=== PATIENT | male | born 2000 | race African-American/Black ===

== ENCOUNTER 2018-01-30 16:50 | Inpatient (IN) ==
[2018-01-30] MEDS ORDERED: Diphtheria/Tetanus/Pertussis Vaccine Inj 0.5 ML Syringe IM ONE (16:56)
[2018-01-30] MEDS ORDERED: fentaNYL Citrate Inj 100 MCG/2 ML Ampul ONE (16:56)
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
[2018-01-30 17:14] LABS: Baso % (Auto) 0.6 % (0.0-2.0); Eos # (Auto) 0.1 th/mm3 (0.0-0.4); Eos % (Auto) 1.7 % (0.0-4.0); Hematocrit 41.1 % (39.0-51.0); Hemoglobin 14.5 gm/dL (13.0-17.0); Lymph # (Auto) 3.1 th/mm3 (1.0-4.8); Lymph % (Auto) 43.2 % (9.0-44.0); Mean Corpuscular HGB Conc 35.3 % (32.0-36.0); Mean Corpuscular Hemoglobin 28.9 pg (27.0-34.0); Mean Corpuscular Volume 81.8 fL (80.0-100.0); Mean Platelet Volume 8.1 fL (7.0-11.0); Mono # (Auto) 0.5 th/mm3 (0.0-0.9); Mono % (Auto) 7.2 % (0.0-8.0); Neut # (Auto) 3.4 th/mm3 (1.8-7.7); Neut % (Auto) 47.3 % (16.0-70.0); Platelet Count 197 th/mm3 (150-450); Red Blood Count 5.02 mil/mm3 (4.50-5.90); Red Cell Distribution Width 14.4 % (11.6-17.2); White Blood Count 7.1 th/mm3 (4.0-11.0)
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
[2018-01-30 17:24] LABS: Activated Partial Thrombo Time 21.7 sec (24.3-30.1); INR 1.1 Ratio; Prothrombin Time 10.8 sec (9.8-11.6)
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
[2018-01-30] MEDS ORDERED: HYDROmorphone PF Inj 2 MG/ML Vial IV.PUSH ONE (17:36)
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
[2018-01-30] MEDS ORDERED: HYDROmorphone PF Inj 1 MG/ML Ampul IV.PUSH PRN (17:53)
[2018-01-30] MEDS ORDERED: Naloxone Inj 0.4 MG/ML Vial IV.PUSH PRN (17:53)
[2018-01-30] MEDS ORDERED: Bisacodyl 10 MG Supp RECTAL PRN (17:53)
[2018-01-30] MEDS ORDERED: Post-op Orders (for Pharmacy) OTHER ONE (17:53)
[2018-01-30] MEDS: Famotidine 20 MG Tablet PO SCH (20:44)
[2018-01-30] MEDS: Senna/Docusate Sodium 8.6/50 MG Tablet PO SCH (20:44)
[2018-01-30] MEDS: Sod Chloride 0.9% Inj 1,000 ML IV.CONT SCH (20:45)
[2018-01-30] MEDS ORDERED: Chlorhexidine Gluconate 2% 1 Pack (2 Cloths) TOPICAL ONE (23:13)
[2018-01-30] MEDS ORDERED: Metoprolol Tartrate 25 MG Tablet PO ONE (23:13)
[2018-01-30] MEDS ORDERED: Sodium Chlor 0.9% Inj 500 ML IV.SIG SCH (23:45)
[2018-01-31] MEDS: HYDROmorphone PF Inj 1 MG/ML Ampul IV.PUSH PRN ×3 (02:00→23:59)
[2018-01-31 04:18] LABS: Baso % (Auto) 0.3 % (0.0-2.0); Hematocrit 43.7 % (39.0-51.0); Hemoglobin 14.6 gm/dL (13.0-17.0); Lymph # (Auto) 1.2 th/mm3 (1.0-4.8); Lymph % (Auto) 14.3 % (9.0-44.0); Mean Corpuscular HGB Conc 33.4 % (32.0-36.0); Mean Corpuscular Hemoglobin 27.8 pg (27.0-34.0); Mean Corpuscular Volume 83.3 fL (80.0-100.0); Mean Platelet Volume 8.3 fL (7.0-11.0); Mono # (Auto) 0.4 th/mm3 (0.0-0.9); Mono % (Auto) 5.2 % (0.0-8.0); Neut # (Auto) 6.7 th/mm3 (1.8-7.7); Neut % (Auto) 80.2 % (16.0-70.0); Platelet Count 194 th/mm3 (150-450); Red Blood Count 5.24 mil/mm3 (4.50-5.90); Red Cell Distribution Width 14.7 % (11.6-17.2); White Blood Count 8.4 th/mm3 (4.0-11.0)
[2018-01-31 04:38] LABS: Calcium 8.4 mg/dL (8.5-10.1); Carbon Dioxide 26.6 meq/L (21.0-32.0)
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
[2018-01-31] MEDS: Sod Chloride 0.9% Inj 1,000 ML IV.CONT SCH (06:46)
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
[2018-01-31] MEDS: Famotidine 20 MG Tablet PO SCH ×2 (12:15→21:21)
[2018-01-31] MEDS: Senna/Docusate Sodium 8.6/50 MG Tablet PO SCH ×2 (12:15→21:21)
[2018-01-31] MEDS ORDERED: Sodium Chlor 0.9% Inj 250 ML IV.CONT ONE (12:32)
[2018-01-31] MEDS ORDERED: Lidocaine PF 1% Inj 5 ML Syringe OTHER ONE (12:32)
[2018-01-31] MEDS ORDERED: Neostigmine Inj 5 MG/5 ML Syringe IV.PUSH ONE (12:32)
[2018-01-31] MEDS ORDERED: Glycopyrrolate Inj 1 MG/5 ML Syringe IV.PUSH ONE (12:32)
--- NOTE | 2018-01-31 15:13 | P.BOP ---
Date of procedure: 01/31/18 Procedure: IMN L femur fracture Implants: Synthes Recon IMN Anesthesia: GETA Surgeon: Felisa Krause MD Estimated blood loss (mL): 200 Pathology: none sent Condition: stable Disposition: PACU
--- NOTE | 2018-01-31 15:14 | P.PNOP ---
Subjective Interval history: POD#0 s/p IMN L femur Physical Exam Vital signs: Vital Signs 01/30/18 17:09 01/30/18 17:46 01/30/18 19:30 Temperature 98.8 F Pulse Rate 87 82 Respiratory Rate 20 16 Blood Pressure 144/66 H 132/58 L Pulse Oximetry 100 100 98 01/31/18 00:10 01/31/18 03:50 01/31/18 08:00 Temperature 97.4 F L 98.2 F 98.7 F Pulse Rate 97 H 94 H 93 H Respiratory Rate 16 16 16 Blood Pressure 133/73 144/67 H 123/72 Pulse Oximetry 98 98 98 01/31/18 12:00 Temperature 99.4 F Pulse Rate 95 H Respiratory Rate 18 Blood Pressure 139/71 Pulse Oximetry 98 Intake & Output 01/30/18 01/31/18 01/31/18 18:59 06:59 18:59 Intake Total 1000 / 1000 1500 / 1500 Output Total 700 / 700 200 / 200 Balance 300 / 300 1300 / 1300 Weight 127 kg Intake: IV 1000 / 1000 NS Inj 1,000 ML @ 100 mls/hr IV 1000 / 1000 .CONT .Q10H MARIELLE Rx#:[id number] Oral 0 / 0 Anesthesia Amount 1500 / 1500 Output: Urine 700 / 700 Estimated Blood Loss 200 / 200 Other: # Voids 0 Date of Last Bowel Movement 01/30/18 01/30/18 Weight On Admission 127 kg Results - Labs CBC & Chem 7: 01/31/18 04:00 01/31/18 04:00 Laboratory Results - last 24 hr 01/30/18 01/30/18 01/30/18 16:54 16:54 16:54 WBC 7.1 RBC 5.02 Hgb 14.5 POC Hgb (Calc) 15.0 Hct 41.1 POC Hct 44.0 MCV 81.8 MCH 28.9 MCHC 35.3 RDW 14.4 Plt Count 197 MPV 8.1 Neut % (Auto) 47.3 Lymph % (Auto) 43.2 [place] % (Auto) 7.2 Eos % (Auto) 1.7 Baso % (Auto) 0.6 Neut # (Auto) 3.4 Lymph # (Auto) 3.1 [place] # (Auto) 0.5 Eos # (Auto) 0.1 Baso # (Auto) 0.0 WBC Differential . Differential Comment Auto diff final PT 10.8 INR 1.1 APTT 21.7 L POC Sodium 142 Sodium POC Potassium 3.5 L Potassium POC Chloride 104 Chloride Carbon Dioxide Anion Gap POC BUN 14 BUN Creatinine POC Creatinine 1.1 Estimated GFR POC Glucose 123 H Random Glucose Calcium Blood Type Antibody Screen 01/30/18 01/31/18 01/31/18 16:54 04:00 04:00 WBC 8.4 RBC 5.24 Hgb 14.6 POC Hgb (Calc) Hct 43.7 POC Hct MCV 83.3 MCH 27.8 MCHC 33.4 RDW 14.7 Plt Count 194 MPV 8.3 Neut % (Auto) 80.2 H Lymph % (Auto) 14.3 [place] % (Auto) 5.2 Eos % (Auto) 0.0 Baso % (Auto) 0.3 Neut # (Auto) 6.7 Lymph # (Auto) 1.2 [place] # (Auto) 0.4 Eos # (Auto) 0.0 Baso # (Auto) 0.0 WBC Differential . Differential Comment Auto diff final PT INR APTT POC Sodium Sodium 137 POC Potassium Potassium 4.0 POC Chloride Chloride 104 Carbon Dioxide 26.6 Anion Gap 6 POC BUN BUN 11 Creatinine 1.05 POC Creatinine Estimated GFR 61 L POC Glucose Random Glucose 122 H Calcium 8.4 L Blood Type O Positive Antibody Screen Negative - Imaging Impressions Chest X-Ray 01/30/18 16:52 CONCLUSION: No acute cardiopulmonary process Pelvis X-Ray 01/30/18 16:52 CONCLUSION: No fracture.. Femur X-Ray 01/30/18 16:57 CONCLUSION: Horizontal fracture through the proximal femoral diaphysis as above. Abdomen/Pelvis CT 01/30/18 17:01 CONCLUSION: 1. Diffuse hepatic fatty infiltration. 2. 2.4 cm umbilical hernia which only contains fat. 3. Otherwise negative. No acute intraperitoneal or pelvic visceral trauma/ fracture. Cervical Spine CT 01/30/18 17:01 CONCLUSION: Negative exam. No fracture. Spinal canal and neural foramina are adequate throughout. Chest CT 01/30/18 17:01 CONCLUSION: 1. Diffuse hepatic fatty infiltration. 2. No acute thoracic trauma. Lungs are clear. No fracture. Head CT 01/30/18 17:01 CONCLUSION: Negative exam. No acute intracranial process, trauma or fracture. . Assessment and Plan - Assessment and Plan 17yo M POD#0 s/p IMN L femur 1. PWB 50% LLE 2. PT for mobilization 3. Dressing changes starting on POD#2 4. Lovenox for VTE ppx. Xarelto for 3 weeks upon discharge 5. F/u with Dr. Krause in 2 weeks
[2018-01-31] MEDS ORDERED: Post-op Orders (for Pharmacy) OTHER STA (15:15)
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
--- NOTE | 2018-01-31 15:31 | XR ---
EXAM DATE: 01/31/2018 3:28 PM EDT AGE/SEX: 17 years / Male INDICATIONS: Intermedullary femoral emre placement. CLINICAL DATA: This is the patient's initial encounter. Patient reports that signs and symptoms have been present for 1 day and indicates a pain score of Nonresponsive. MEDICAL/SURGICAL HISTORY: None. None. COMPARISON: No prior exams available for comparison. FINDINGS: 7 spot intraoperative fluoroscopic views of the left femur demonstrate antegrade intramedullary emre p lacement across the femoral fracture with a distal interlocking screw and 2 proximal interlocking scr ews. There is excellent alignment. CONCLUSION: Femoral emre placement as above. Electronically signed by: Bertram Byrne MD 01/31/2018 3:29 PM EDT
[2018-01-31] MEDS ORDERED: *Meperidine Inj 25 MG/ML Vial PERIprocedural Use ONLY ONE (15:45)
[2018-01-31] MEDS ORDERED: fentaNYL Citrate Inj 100 MCG/2 ML Ampul ONE ×2 (15:49→15:50)
[2018-01-31] MEDS ORDERED: *Ondansetron Inj 4 MG/2 ML Vial PERIprocedural Use ONLY ONE (16:25)
[2018-01-31] MEDS ORDERED: *morphine SULFATE 10 MG/ML PERIprocedure ONLY ONE (16:25)
[2018-02-01] MEDS: HYDROmorphone PF Inj 1 MG/ML Ampul IV.PUSH PRN ×2 (03:34→06:19)
[2018-02-01] MEDS: Enoxaparin Inj 40 MG/0.4 ML Syringe SQ SCH (03:34)
[2018-02-01] MEDS: Senna/Docusate Sodium 8.6/50 MG Tablet PO SCH ×2 (09:11→21:37)
[2018-02-01] MEDS: Famotidine 20 MG Tablet PO SCH ×2 (09:12→21:37)
--- NOTE | 2018-02-01 10:29 | P.PNOP ---
Subjective Interval history: Patient is awake and alert. He admits to a moderate amount of pain as he just work with physical therapy. Patient states he is going to speak with his parents today about possible discharge to either rehab or home. Physical Exam Vital signs: Vital Signs 01/31/18 12:00 01/31/18 15:45 01/31/18 16:00 Temperature 99.4 F 99.6 F Pulse Rate 95 H 110 H 90 Respiratory Rate 18 16 16 Blood Pressure 139/71 151/89 H 147/65 H Pulse Oximetry 98 98 91 L 01/31/18 16:15 01/31/18 16:30 01/31/18 16:45 Temperature Pulse Rate 90 90 100 H Respiratory Rate 16 16 16 Blood Pressure 161/73 H 160/72 H 157/70 H Pulse Oximetry 100 100 98 01/31/18 17:00 01/31/18 19:50 01/31/18 21:38 Temperature 98.7 F Pulse Rate 88 95 H Respiratory Rate 16 16 Blood Pressure 160/70 H 132/69 Pulse Oximetry 97 95 96 01/31/18 23:35 02/01/18 03:50 02/01/18 08:00 Temperature 99.6 F 98.6 F 99.6 F Pulse Rate 103 H 96 H 114 H Respiratory Rate 16 16 16 Blood Pressure 122/71 125/65 122/64 Pulse Oximetry 95 93 L 92 L Intake & Output 01/31/18 02/01/18 02/01/18 18:59 06:59 18:59 Intake Total 1500 / 1500 900 / 900 Output Total 200 / 200 Balance 1300 / 1300 900 / 900 Weight 127.1 kg Intake: Oral 900 / 900 Anesthesia Amount 1500 / 1500 Output: Estimated Blood Loss 200 / 200 Other: # Voids 2 Date of Last Bowel Movement 01/30/18 01/30/18 Narrative: LLE: Dressing dry and intact. Should be reinforced. Mild palpable tenderness over thigh and knee. Range of motion not tested. No calf pain, negative Homans sign. Neurovascularly intact Results - Labs CBC & Chem 7: 01/31/18 04:00 01/31/18 04:00 - Imaging Impressions Femur X-Ray 01/31/18 00:00 CONCLUSION: Femoral emre placement as above. - Procedures 01/31/[address] Krause Assessment and Plan - Assessment and Plan 17yo M POD#1 s/p IMN L femur 1. PWB 50% LLE 2. PT for mobilization 3. Dressing changes starting on POD#2 4. Lovenox for VTE ppx. Xarelto for 3 weeks upon discharge 5. F/u with Dr. Krause in 2 weeks 6. CM to arrange rehab vs [facility]. Consider rehab if parents do not feel comfortable with transfers/limited w/b due to large size. 7. Most likely d/c tomorrow
[2018-02-01 10:59] LABS: Baso % (Auto) 0.4 % (0.0-2.0); Eos % (Auto) 0.3 % (0.0-4.0); Hematocrit 38.4 % (39.0-51.0); Hemoglobin 12.7 gm/dL (13.0-17.0); Mean Corpuscular Hemoglobin 27.7 pg (27.0-34.0); Mean Corpuscular Volume 83.9 fL (80.0-100.0); Mono # (Auto) 0.5 th/mm3 (0.0-0.9); Mono % (Auto) 6.6 % (0.0-8.0); Neut # (Auto) 4.8 th/mm3 (1.8-7.7); Neut % (Auto) 65.7 % (16.0-70.0); Platelet Count 179 th/mm3 (150-450); Red Blood Count 4.57 mil/mm3 (4.50-5.90); Red Cell Distribution Width 14.4 % (11.6-17.2); White Blood Count 7.4 th/mm3 (4.0-11.0)
[2018-02-01 11:30] LABS: Anion Gap 7 meq/L (5-15); Blood Urea Nitrogen 11 mg/dL (7-18); Calcium 8.2 mg/dL (8.5-10.1); Carbon Dioxide 26.7 meq/L (21.0-32.0); Chloride 100 meq/L (98-107); Glucose,Random 89 mg/dL (74-106); Sodium 134 meq/L (136-145)
--- NOTE | 2018-02-01 11:34 | P.DCO ---
- Physical Therapy Order: Evaluate and treat, Improve ambulation, Strength and gait training - Occupational Therapy Order: Evaluate and treat, Improve ADL, Gross motor coordination - Home Health Nursing Order: Medical education, Signs/symptoms of disease process, Medication education-adverse effect, Nursing assessment with vital signs - Case Management Consult Yes - Certification I have seen patient Juan Carlos Hudson JR on 02/01/18. My clinical findings support the need for the requested home health care services because: Limited mobility due to disease progression, Patient has SOB, Deconditioned with increased weakness, Limited ability to care for self, High risk of falls I certify that my clinical findings support that this patient is homebound because: Post-op weakness, Unsteady gait/balance, Unsafe to leave home unassisted, Unable to use public transportation
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
[2018-02-01 11:39] LABS: Glomerular Filtration Rate Greater Than 89 mL/min (>89)
[2018-02-02] MEDS: Enoxaparin Inj 40 MG/0.4 ML Syringe SQ SCH (04:47)
[2018-02-02] MEDS ORDERED: Acetaminophen 325 MG Tablet PO PRN (06:48)
[2018-02-02 07:36] LABS: Baso # (Auto) 0.1 th/mm3 (0.0-0.2); Baso % (Auto) 0.7 % (0.0-2.0); Eos % (Auto) 0.5 % (0.0-4.0); Hematocrit 35.6 % (39.0-51.0); Hemoglobin 11.9 gm/dL (13.0-17.0); Lymph # (Auto) 1.6 th/mm3 (1.0-4.8); Lymph % (Auto) 17.5 % (9.0-44.0); Mean Corpuscular HGB Conc 33.3 % (32.0-36.0); Mean Corpuscular Hemoglobin 27.7 pg (27.0-34.0); Mean Corpuscular Volume 83.2 fL (80.0-100.0); Mean Platelet Volume 8.1 fL (7.0-11.0); Mono # (Auto) 0.7 th/mm3 (0.0-0.9); Mono % (Auto) 7.6 % (0.0-8.0); Neut # (Auto) 6.9 th/mm3 (1.8-7.7); Neut % (Auto) 73.7 % (16.0-70.0); Platelet Count 154 th/mm3 (150-450); Red Blood Count 4.28 mil/mm3 (4.50-5.90); Red Cell Distribution Width 14.5 % (11.6-17.2); White Blood Count 9.4 th/mm3 (4.0-11.0)
--- NOTE | 2018-02-02 08:32 | P.PNOP ---
Subjective Interval history: Patient is awake and alert. Patient has spoken with his parents and they think that is best for him to go to rehab after discharge. I think this is a good plan for him due to his large size and limited weightbearing. Physical Exam Vital signs: Vital Signs 02/01/18 12:00 02/01/18 16:00 02/01/18 20:00 Temperature 100.0 F H 99.9 F H 99.3 F Pulse Rate 122 H 116 H 120 H Respiratory Rate 16 16 20 Blood Pressure 130/70 129/79 117/67 Pulse Oximetry 95 93 L 95 02/01/18 22:07 02/02/18 00:00 02/02/18 04:00 Temperature 101.8 F H 99.2 F Pulse Rate 126 H 118 H Respiratory Rate 18 20 20 Blood Pressure 113/58 L 141/71 H Pulse Oximetry 95 95 Intake & Output 02/01/18 02/02/18 02/02/18 18:59 06:59 18:59 Intake Total 240 / 240 Output Total 1200 / 1200 960 / 960 Balance -1200 / -1200 -720 / -720 Weight 142.8 kg Intake: Oral 240 / 240 Output: Urine 1200 / 1200 960 / 960 Other: Date of Last Bowel Movement 01/30/18 01/30/18 Narrative: LLE: Dressing dry and intact. Mild palpable tenderness over thigh and knee. Range of motion not tested. No calf pain, negative Homans sign. Neurovascularly intact Results - Labs CBC & Chem 7: 02/02/18 07:25 02/01/18 07:20 Laboratory Results - last 24 hr 02/01/18 02/01/18 02/02/18 07:20 07:20 07:25 WBC 7.4 9.4 RBC 4.57 4.28 L Hgb 12.7 L 11.9 L Hct 38.4 L 35.6 L MCV 83.9 83.2 MCH 27.7 27.7 MCHC 33.0 33.3 RDW 14.4 14.5 Plt Count 179 154 MPV 9.0 8.1 Neut % (Auto) 65.7 73.7 H Lymph % (Auto) 27.0 17.5 [place] % (Auto) 6.6 7.6 Eos % (Auto) 0.3 0.5 Baso % (Auto) 0.4 0.7 Neut # (Auto) 4.8 6.9 Lymph # (Auto) 2.0 1.6 [place] # (Auto) 0.5 0.7 Eos # (Auto) 0.0 0.0 Baso # (Auto) 0.0 0.1 WBC Differential . . Differential Comment Auto diff final Auto diff final Sodium 134 L Potassium 4.0 Chloride 100 Carbon Dioxide 26.7 Anion Gap 7 BUN 11 Creatinine 1.04 Estimated GFR Greater than 89 Random Glucose 89 Calcium 8.2 L - Procedures 01/31/[address] Krause Assessment and Plan - Assessment and Plan 17yo M POD#2 s/p IMN L femur 1. PWB 50% LLE 2. PT for mobilization 3. Daily dressing changes 4. Lovenox for VTE ppx. Xarelto for 3 weeks upon discharge 5. F/u with Dr. Krause in 2 weeks 6. Cleared for discharge from orthopedic standpoint. Case management to arrange rehab facility vs [facility]. I would rec. rehab based upon my encounter with the patient.
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
[2018-02-02] MEDS: Famotidine 20 MG Tablet PO SCH ×2 (09:39→20:59)
[2018-02-02] MEDS: Senna/Docusate Sodium 8.6/50 MG Tablet PO SCH ×2 (09:39→20:59)
[2018-02-03] MEDS: Enoxaparin Inj 40 MG/0.4 ML Syringe SQ SCH (04:18)
--- NOTE | 2018-02-03 06:45 | XR ---
EXAM DATE: 02/03/2018 6:40 AM EDT AGE/SEX: 17 years / Male INDICATIONS: Shortness of breath, possible pulmonary disease. CLINICAL DATA: This is the patient's subsequent encounter. Patient reports that signs and symptoms h ave been present for 4 - 6 days and indicates a pain score of 0/10. MEDICAL/SURGICAL HISTORY: None. None. [place] [facility] [place] [facility] [place] 8. [facility] [place]30/2018. . FINDINGS: Patchy parenchymal opacities are present in the mid and lower lung predominant distribution and both sides are worse in the interim. Small bilateral pleural effusions are suspected as well. No pneumotho rax. Heart size stable, upper limits of normal. CONCLUSION: Worsening bilateral airspace disease. Electronically signed by: Be Nunez MD 02/03/2018 6:44 AM EDT
[2018-02-03] MEDS: Famotidine 20 MG Tablet PO SCH ×2 (08:15→22:07)
[2018-02-03] MEDS: Senna/Docusate Sodium 8.6/50 MG Tablet PO SCH ×2 (08:16→22:06)
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
[2018-02-04] MEDS: Enoxaparin Inj 40 MG/0.4 ML Syringe SQ SCH ×2 (04:18→21:41)
[2018-02-04] MEDS ORDERED: Bisacodyl 10 MG Supp RECTAL ONE (07:06)
[2018-02-04] MEDS: Senna/Docusate Sodium 8.6/50 MG Tablet PO SCH ×2 (08:45→21:41)
[2018-02-04] MEDS: Famotidine 20 MG Tablet PO SCH ×2 (08:45→21:41)
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
[2018-02-05 04:11] LABS: Baso # (Auto) 0.1 th/mm3 (0.0-0.2); Baso % (Auto) 1.5 % (0.0-2.0); Eos # (Auto) 0.3 th/mm3 (0.0-0.4); Eos % (Auto) 5.2 % (0.0-4.0); Hematocrit 32.4 % (39.0-51.0); Hemoglobin 10.6 gm/dL (13.0-17.0); Lymph % (Auto) 30.7 % (9.0-44.0); Mean Corpuscular HGB Conc 32.8 % (32.0-36.0); Mean Corpuscular Hemoglobin 27.4 pg (27.0-34.0); Mean Corpuscular Volume 83.4 fL (80.0-100.0); Mean Platelet Volume 8.4 fL (7.0-11.0); Mono # (Auto) 0.8 th/mm3 (0.0-0.9); Mono % (Auto) 12.6 % (0.0-8.0); Neut # (Auto) 3.3 th/mm3 (1.8-7.7); Platelet Count 182 th/mm3 (150-450); Red Blood Count 3.89 mil/mm3 (4.50-5.90); Red Cell Distribution Width 14.1 % (11.6-17.2); White Blood Count 6.6 th/mm3 (4.0-11.0)
[2018-02-05 04:29] LABS: Anion Gap 7 meq/L (5-15); Blood Urea Nitrogen 12 mg/dL (7-18); Calcium 8.2 mg/dL (8.5-10.1); Chloride 98 meq/L (98-107); Glomerular Filtration Rate Greater Than 89 mL/min (>89); Glucose,Random 108 mg/dL (74-106); Potassium 3.6 meq/L (3.5-5.1); Sodium 135 meq/L (136-145)
[2018-02-05] MEDS: Enoxaparin Inj 40 MG/0.4 ML Syringe SQ SCH ×2 (08:29→21:50)
[2018-02-05] MEDS: Famotidine 20 MG Tablet PO SCH ×2 (08:29→21:49)
[2018-02-05] MEDS: Senna/Docusate Sodium 8.6/50 MG Tablet PO SCH ×2 (08:29→21:51)
--- NOTE | 2018-02-05 10:34 | XR ---
EXAM DATE: 02/05/2018 9:27 AM EDT AGE/SEX: 17 years / Male INDICATIONS: Shortness of breath. CLINICAL DATA: This is the patient's subsequent encounter. Patient reports that signs and symptoms h ave been present for 4 - 6 days and indicates a pain score of 6/10. MEDICAL/SURGICAL HISTORY: None. None. COMPARISON: [facility] – [place], CHEST 1V SINGLE AP, 02/03/2018. . FINDINGS: Redemonstration of diffuse interstitial and patchy airspace opacities most prominently in the right l ower lung zone. Cardiomediastinal contours are within normal limits. Remainder of the exam is unchang ed. CONCLUSION: 1. Persistent diffuse bilateral interstitial and airspace disease. Electronically signed by: Tino Estevez MD 02/05/2018 9:46 AM EDT
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
[2018-02-06 05:04] LABS: Baso # (Auto) 0.1 th/mm3 (0.0-0.2); Baso % (Auto) 0.9 % (0.0-2.0); Eos # (Auto) 0.3 th/mm3 (0.0-0.4); Eos % (Auto) 3.9 % (0.0-4.0); Hemoglobin 10.2 gm/dL (13.0-17.0); Lymph # (Auto) 1.7 th/mm3 (1.0-4.8); Lymph % (Auto) 24.9 % (9.0-44.0); Mean Corpuscular HGB Conc 32.9 % (32.0-36.0); Mean Corpuscular Hemoglobin 27.6 pg (27.0-34.0); Mean Corpuscular Volume 83.8 fL (80.0-100.0); Mean Platelet Volume 8.5 fL (7.0-11.0); Mono # (Auto) 1.1 th/mm3 (0.0-0.9); Mono % (Auto) 16.9 % (0.0-8.0); Neut # (Auto) 3.6 th/mm3 (1.8-7.7); Neut % (Auto) 53.4 % (16.0-70.0); Platelet Count 213 th/mm3 (150-450); Red Cell Distribution Width 14.3 % (11.6-17.2); White Blood Count 6.8 th/mm3 (4.0-11.0)
[2018-02-06] MEDS: Famotidine 20 MG Tablet PO SCH ×2 (09:09→20:15)
[2018-02-06] MEDS: Enoxaparin Inj 40 MG/0.4 ML Syringe SQ SCH ×2 (09:09→20:14)
[2018-02-06] MEDS: Senna/Docusate Sodium 8.6/50 MG Tablet PO SCH ×2 (09:09→20:15)
--- NOTE | 2018-02-06 10:32 | XR ---
EXAM DATE: 02/06/2018 9:56 AM EDT AGE/SEX: 17 years / Male INDICATIONS: Trauma CLINICAL DATA: This is the patient's initial encounter. Patient reports that signs and symptoms have been present for 3 days and indicates a pain score of 0/10. MEDICAL/SURGICAL HISTORY: . left femur fracture. None. [place] [facility] [place]. . FINDINGS: There is marked perihilar vascular congestion. Heart and mediastinum are unremarkable. There is no vi sible pneumothorax. Bones are intact. CONCLUSION: Perihilar vascular congestion unchanged since the previous day Electronically signed by: J Luis Alford MD 02/06/2018 10:00 AM EDT
--- NOTE | 2018-02-06 14:25 | ECHRPT ---
Indication: SHORTNESS OF BREATH CONCLUSIONS Normal left ventricular size. Mild concentric left ventricular hypertrophy. The left ventricular systolic function is low normal with an estimated ejection fraction in the rang e of 50- 55%. The estimated pulmonary arterial pressure is 38 mmHg. There is mild tricuspid valve regurgitation. Estimated RAP 3mmHg. BP: / HR: Rhythm: Technical Quality:Very technically difficult study FINDINGS LEFT VENTRICLE Normal left ventricular size. Mild concentric left ventricular hypertrophy. The left ventricular systolic function is low normal with an estimated ejection fraction in the rang e of 50- 55%. No regional wall motion abnormalities are present. RIGHT VENTRICLE Normal right ventricular size and systolic function. LEFT ATRIUM The left atrial size is normal. RIGHT ATRIUM The right atrial size is normal. ATRIAL SEPTUM Normal atrial septal thickness without atrial level shunting by limited color doppler interrogation. AORTA The aortic root and proximal ascending aorta are normal in size on limited imaging. MITRAL VALVE Structurally normal mitral valve. No mitral valve stenosis or regurgitation. AORTIC VALVE Trileaflet aortic valve. No aortic valve stenosis or regurgitation. TRICUSPID VALVE The estimated pulmonary arterial pressure is 38 mmHg. There is mild tricuspid valve regurgitation. PULMONARY VALVE No pulmonary valve regurgitation or stenosis. VESSELS The inferior vena cava is normal in size. There is greater than 50% respiratory change in dimension of the inferior vena cava (normal). Estimated RAP 3mmHg. PERICARDIUM No pericardial effusion. Alden Boss (Electronically Signed) Final Date:06 February 2018 14:24
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
--- NOTE | 2018-02-06 16:47 | CT ---
EXAM DATE: 02/06/2018 4:41 PM EDT AGE/SEX: 17 years / Male INDICATIONS: Shortness of breath. CLINICAL DATA: This is the patient's initial encounter. Patient reports that signs and symptoms have been present for 1 day and indicates a pain score of 3/10. MEDICAL/SURGICAL HISTORY: . Left femur fracture. . Left femur surgery. RADIATION DOSE: 10.66 CTDI (mGy) COMPARISON: No prior exams available for comparison. TECHNIQUE: Volumetric scanning was performed using a multi-row detector CT scanner during bolus infu isatu of 75 ml Omnipaque 350 (iohexol) nonionic water-soluble contrast as a single exam dose. The fredo a was post processed with a variety of visualization algorithms including full volume maximum intensi ty projection and sliding thin slab reformation. Using automated exposure control and adjustment of the mA and/or kV according to patient size, radiation dose was kept as low as reasonably achievable t o obtain optimal diagnostic quality images. DICOM format image data is available electronically for review and comparison. FINDINGS: The liver is questionably fatty. Fairly extensive airspace process is seen bilaterally diffusely wors e in the lung bases. No definite pneumothorax is seen for technique. There is no evidence of PE for technique. There is a line overlapping one of the left lower lobe pul monary artery branches artifactually created. CONCLUSION: 1. There is no evidence of PE for technique. 2. Fairly extensive airspace process bilaterally may represent pulmonary edema, however inflammatory process could also have this appearance and the appearance is nonspecific. Electronically signed by: Eva Wheat MD 02/06/2018 4:46 PM EDT
[2018-02-07 04:39] LABS: Baso # (Auto) 0.1 th/mm3 (0.0-0.2); Baso % (Auto) 0.8 % (0.0-2.0); Eos # (Auto) 0.1 th/mm3 (0.0-0.4); Eos % (Auto) 1.3 % (0.0-4.0); Hematocrit 34.7 % (39.0-51.0); Hemoglobin 11.1 gm/dL (13.0-17.0); Lymph # (Auto) 2.2 th/mm3 (1.0-4.8); Lymph % (Auto) 24.2 % (9.0-44.0); Mean Corpuscular HGB Conc 32.1 % (32.0-36.0); Mean Corpuscular Hemoglobin 27.4 pg (27.0-34.0); Mean Corpuscular Volume 85.4 fL (80.0-100.0); Mean Platelet Volume 8.5 fL (7.0-11.0); Mono # (Auto) 1.3 th/mm3 (0.0-0.9); Mono % (Auto) 14.2 % (0.0-8.0); Neut # (Auto) 5.3 th/mm3 (1.8-7.7); Neut % (Auto) 59.5 % (16.0-70.0); Platelet Count 256 th/mm3 (150-450); Red Blood Count 4.06 mil/mm3 (4.50-5.90); Red Cell Distribution Width 14.7 % (11.6-17.2); White Blood Count 8.9 th/mm3 (4.0-11.0)
[2018-02-07] MEDS: Enoxaparin Inj 40 MG/0.4 ML Syringe SQ SCH ×2 (10:11→21:01)
[2018-02-07] MEDS: Senna/Docusate Sodium 8.6/50 MG Tablet PO SCH ×2 (10:12→20:59)
[2018-02-07] MEDS: Famotidine 20 MG Tablet PO SCH ×2 (10:12→21:02)
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
[2018-02-08] MEDS: Famotidine 20 MG Tablet PO SCH (08:37)
[2018-02-08] MEDS: Enoxaparin Inj 40 MG/0.4 ML Syringe SQ SCH (08:37)
[2018-02-08] MEDS: Senna/Docusate Sodium 8.6/50 MG Tablet PO SCH (08:37)
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
== END 2018-02-08 17:20 ==
LOC: EDBD → NEPI 16:50 → NEDA 17:40 → EDBD 17:40 → N06 18:28 → N03 02-06 16:52 → N06 02-07 15:29
PROVIDERS: ADMIT Surgery; ATTEND Surgery
PROC: ORIFFEM (2018-01-31 12:32)